=== PATIENT | male | born 1960 | race African-American/Black ===

== ENCOUNTER → 2017-09-04 | Outpatient (CLI) | payer BC, OTHER ==
[~2017-09-04] MED LIST: ATEN50TA PO; COMMODE 3-IN-11 MIS; ECASA81 PO; ENAL2.5T PO; HYDR12.57 PO; MULT-65 PO; NAPR500T2 PO; TYLE325T PO; VITA100018 PO; WALKER WHEELS/F1 MIS
== END ==
LOC: CPRE 11:22
PROVIDERS: ATTEND Orthopaedic Surgery Orthopaedic Trauma
DX: M16.11 Unilateral primary osteoarthritis, right hip (principal); M79.609 Pain in unspecified limb; Z96.60 Presence of unspecified orthopedic joint implant; Z79.01 Long term (current) use of anticoagulants; Z01.818 Encounter for other preprocedural examination; Z13.9 Encounter for screening, unspecified

== ENCOUNTER 2017-09-08 05:26 | Inpatient (IN) | payer BC, OTHER ==
[~2017-09-08] VITALS: Ht 177.8 cm; Wt 100.0 kg
[~2017-09-08 05:26] MED LIST changes: -COMMODE 3-IN-11 MIS; -HYDR12.57 PO; -WALKER WHEELS/F1 MIS
[2017-09-08] MEDS ORDERED: LACTATED RINGER'S 1000 ML IV PRN (06:00)
[2017-09-08] MEDS ORDERED: METOPROLOL TARTRATE 25 MG TAB PO PRN (06:00)
[2017-09-08] MEDS ORDERED: CHLORHEXIDINE GLUCONATE 2 % 1 PACK (2 CLOTHS) TOPICAL PRN (06:00)
[2017-09-08] MEDS ORDERED: SODIUM CHLORID 0.9% 500 ML IV PRN (06:00)
[2017-09-08] MEDS ORDERED: POVIDONE IODINE 5% (ANTISEPSIS KIT) 4 APPLICATIONS EACH NARE PRN (06:00)
[2017-09-08] MEDS ORDERED: FAMOTIDINE 20 MG/2 ML VIAL ONE (06:01)
[2017-09-08] MEDS ORDERED: ACETAMINOPHEN 1000 MG/100 ML 100 ML IV ONE (06:01)
[2017-09-08] MEDS ORDERED: DEXAMETHASONE SOD PHOS 20 MG/5 ML VIAL ONE (06:01)
[2017-09-08] MEDS ORDERED: ONDANSETRON HCL 4 MG/2 ML VIAL ONE (06:01)
[2017-09-08] MEDS ORDERED: VANCOMYCIN 1 GM/200 ML INJ 200 ML IV ONE (06:01)
[2017-09-08] MEDS ORDERED: HYDR12.57 PO (06:03)
[2017-09-08] MEDS ORDERED: GENTAMICIN SULFATE 80 MG/2 ML VIAL ONE (06:08)
[2017-09-08] MEDS ORDERED: GABAPENTIN 300 MG CAP PO SCH (06:15)
[2017-09-08] MEDS ORDERED: BUPIVACAINE LIPOSO PF 1.3% INJ 20 ML, BUPIVACAINE-EPI PF 0.25% INJ 20 ML in SODIUM CHLO... P-ARTICULR SCH (06:30)
[2017-09-08] MEDS ORDERED: ceFAZolin 2 GM PREMIX 50 ML IV SCH ×2 (06:30→14:00)
[2017-09-08] MEDS ORDERED: VANCOMYCIN 1 GM/200 ML PREMIX ON-CALL IV SCH (06:30)
[2017-09-08] MEDS ORDERED: CELECOXIB 200 MG CAP PO SCH (06:30)
[2017-09-08] MEDS ORDERED: TRANEXAMIC ACID INJ 1,500 MG in SODIUM CHLORIDE 0.9% INJ 100 ML IV SCH (06:30)
[2017-09-08] MEDS ORDERED: CHLORHEXIDINE GLUCONATE 4% SOLN 120 ML BTL TOPICAL SCH (06:30)
[2017-09-08] MEDS ORDERED: ONDANSETRON HCL 4 MG/2 ML VIAL IV PRN (06:45)
[2017-09-08] MEDS ORDERED: DEXAMETHASONE SOD PHOS 20 MG/5 ML VIAL IV PRN (06:45)
[2017-09-08] MEDS ORDERED: ACETAMINOPHEN 1000 MG/100 ML 100 ML IV PRN (06:45)
--- NOTE | 2017-09-08 08:58 | PD.OP ---
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 Surgeon: Gibson Greenfield Interior Design Instructor(s): MILLIE Baca PA-C The surgical procedure was assisted by my physician home based assistant. My P.A. presence was necessary throughout this case for the manipulation and positioning of the surgical extremity. My P.A. was assisting me throughout the duration of this procedure. The skill set of a physician home based assistant was medically necessary to complete this procedure. During the surgical case the certified surgical technician was working at the back table and the physician home based assistant was directly assisting me. Operation and Findings: PLAN OF ACTIVITY Weight bear as tolerated. IMPLANTS USED DePuy Corail size [13] standard stem with a size [54] Warsaw Gription cup, [54 /36] Altrx poly liner, and a [36+1] ceramic Biolox ceramic head. DETAILS OF PROCEDURE: This patient has a long history of hip pain. Patient was found to have severe osteoarthritis. The patient had radiographic evidence of joint space narrowing with [id number] arthritis and osteophytes around the acetabulum as well as the femoral head. There was also some cystic changes. The patient failed conservative treatment with pain medications, anti-inflammatories, physical therapy, assistive devices including a cane, as well as therapeutic injection of the hip. Patient's hip arthritis was limiting his ability to ambulate and perform activities of daily living. The patient wished to proceed with surgery and informed consent was obtained. Operative site was marked. I discussed both posterior approach and anterior approach with the patient and decision was made for anterior approach. Patient was brought to OR and placed on OR table. IV sedation and general anesthesia was administered by anesthesiologist. Patient positioned on a Xochitl table and was given IV antibiotics. Time-out procedure was performed. The hip and thigh were prepped with alcohol followed by Hibiclens. The thigh was draped in the usual sterile fashion. Clean Air Suite was used for this procedure. The procedure began with a 5-inch incision over the anterolateral thigh. Subcutaneous tissue was dissected with Bovie. The fascia over the tensa fasciae latae was incised. Care was taken to avoid injury to the lateral femoral cutaneous nerve. The tensor muscle was retracted laterally. Sartorius was retracted medially. Retractors were now placed. The reflected head of the rectus is now elevated. A capsulotomy was performed over the anterior head capsule. Sutures were placed to help retract the capsule. At this point the femoral head and neck were identified. With soft tissue protected, oscillating saw was used to make a cut through the femoral neck, the femoral head was now removed. At this point attention was turned to preparation of the acetabulum. The labrum was excised. The acetabulum was sequentially reamed up to size [54]. A Warsaw cup was now placed. Fluoroscopy was used to aid in identification of appropriate version. Cup was fully impacted and found to have excellent fit. Hole eliminator was now placed. The liner was now impacted into the cup. At this point the hip was externally rotated. A hook was placed around the proximal femur. The capsule was released off the lateral and medial femur. The hip was now extended and adducted. Retractors were placed around the proximal femur to allow for exposure. A box osteotome was used to remove the lateral cortex of the femoral neck. A broach was used to help lateralize the prosthesis. Canal finder was used to create a path down the canal. Next, the canal was sequentially broached up to size [13]. This was found to be an excellent fit. The stem was left slightly superior to help regain leg length to match left side. Calcar planer was placed. A standard head was placed, and the hip was reduced. The hip was found to have excellent stability with good range of motion. The leg lengths were measured under fluoroscopy and found to be equal compared to preoperatively. Trial broach was removed. The Corail stem was opened. Stem was fully impacted into the proximal femur in appropriate version. The femoral head was placed. The hip was again reduced. Fluoroscopy confirmed excellent alignment of prosthesis. The wound was thoroughly irrigated and capsule was closed with #1 Vicryl. The fascia over the tensor fasciae muscle was closed with #1 Vicryl, subcutaneous tissue was closed with 3-0 Vicryl and the skin was closed with yamila and Dermabond skin closure. The capsule layers, muscle, and subcutaneous tissue were injected with a mixture of saline and bupivicaine. Dressings were applied. The patient was transferred to Recovery Room in stable condition. Gibson Greenfield MD Sep 08, 2017 08:58
[2017-09-08] MEDS ORDERED: ACETAMINOPHEN/HYDROcodone 325 MG/7.5 MG TAB PO PRN (09:00)
[2017-09-08] MEDS ORDERED: Post-op Orders (for Pharmacy) XX ONE (09:00)
[2017-09-08] MEDS ORDERED: ACETAMINOPHEN/HYDROcodone 325 MG/5 MG TAB PO PRN (09:00)
[2017-09-08] MEDS ORDERED: MORPHINE SULFATE 4 MG/ML INJ IV PUSH PRN (09:00)
[2017-09-08] MEDS ORDERED: NALOXONE HCL 0.4 MG/ML AMP IV PUSH PRN (09:00)
[2017-09-08] MEDS ORDERED: ACETAMINOPHEN/HYDROcodone 325 MG/10 MG TAB PO PRN (09:00)
[2017-09-08] MEDS ORDERED: DO NOT ADM ANY ANTICOAGULANT DRUGS PRN (09:15)
[2017-09-08] MEDS ORDERED: *MEPERIDINE 25 MG INJ VIAL PERIprocedural Use ONLY ONE (09:23)
[2017-09-08] MEDS: LACTATED RINGER'S 1000 ML INJ 1,000 ML IV SCH ×2 (09:31→21:19)
[2017-09-08] MEDS: KETOROLAC TROMETHAMINE 30 MG/ML (IVP) VIAL IV PUSH SCH ×2 (10:26→21:18)
--- NOTE | 2017-09-08 10:59 | RADRPT ---
EXAM DATE/TIME: 09/08/2017 09:28 [facility] COMPARISON: No previous studies available for comparison. INDICATIONS : Post-op right anterior hip replacement. MEDICAL HISTORY : Hypertension. Diabetes mellitus type II. Arthritis. SURGICAL HISTORY : Right total hip replacement. ENCOUNTER: Initial ACUITY: 1 day PAIN SCORE: Non-responsive. LOCATION: Right anterior hip. FINDINGS: A lateral view of the right hip with AP pelvis was obtained. Right total arthroplasty. Both the femor al and acetabular components are properly positioned. No fracture. CONCLUSION: Appropriate postoperative appearance of the right hip status post total arthroplasty. Wayne Vásquez MD on September 08, 2017 at 10:56 Board Certified Radiologist. This report was verified electronically.
[2017-09-08] MEDS ORDERED: PROPOFOL 200 MG/20 ML AMP IV ONE (12:00)
[2017-09-08] MEDS ORDERED: GLYCOPYRROLATE 1 MG/5 ML SYRINGE IV PUSH ONE (12:00)
[2017-09-08] MEDS ORDERED: ONDANSETRON HCL 4 MG/2 ML VIAL IV ONE (12:00)
[2017-09-08] MEDS ORDERED: LIDOCAINE HCL 1% PF 5 ML SYRINGE OTHER ONE (12:00)
[2017-09-08] MEDS ORDERED: DEXAMETHASONE SOD PHOS 4 MG/ML VIAL IV ONE (12:00)
[2017-09-08] MEDS ORDERED: LACTATED RINGER'S 1000 ML INJ 1,000 ML IV ONE (12:00)
[2017-09-08] MEDS ORDERED: ROCURONIUM INJ 50 MG/5 ML SYRINGE IV PUSH ONE (12:00)
[2017-09-08] MEDS ORDERED: PHENYLEPH/NS 1000 MCG/10 ML SYR IV ONE (12:00)
[2017-09-08] MEDS ORDERED: NEOSTIGMINE 5 MG/5 ML SYRINGE IV PUSH ONE (12:00)
[2017-09-08 12:22] VITALS: BP 132/76; PULSE 89; RESP 18; TEMP 96.9; O2SAT 99
--- NOTE | 2017-09-08 13:45 | RADRPT ---
EXAM DATE/TIME: 09/08/2017 00:00 [facility] COMPARISON: No previous studies available for comparison. INDICATIONS : Post op total hip MEDICAL HISTORY : Hypertension. Diabetes mellitus type II. Arthritis. SURGICAL HISTORY : Right total hip replacement. ENCOUNTER: Subsequent ACUITY: 2 days PAIN SCORE: Non-responsive. LOCATION: Right Hip. FINDINGS: Patient is status post placement of a right hip prosthesis. There is good position and alignment of t he prosthesis and bony structures. The bony structures are grossly intact. Postsurgical changes are p resent. CONCLUSION: Good position and alignment on this postoperative examination. Lizandro Carmichael MD on September 08, 2017 at 13:43 Board Certified Radiologist. This report was verified electronically.
[2017-09-08] MEDS ORDERED: TRANEXAMIC ACID INJ 1,000 MG in SODIUM CHLORIDE 0.9% INJ 100 ML IV ONE (14:00)
[2017-09-08] MEDS: CEFAZOLIN INJ 2,000 MG in SODIUM CHLORIDE 0.9% INJ 100 ML IV SCH ×2 (14:21→21:18)
[2017-09-08] MEDS ORDERED: COMMODE 3-IN-11 MIS (15:56)
[2017-09-08] MEDS ORDERED: WALKER WHEELS/F1 MIS (15:56)
[2017-09-08] MEDS: ACETAMINOPHEN 1000 MG/100 ML 100 ML IV SCH (16:52)
[2017-09-08] MEDS: VANCOMYCIN INJ 1,000 MG in SODIUM CHLOR 0.9% 250 ML INJ 250 ML IV SCH (16:52)
[2017-09-08 17:50] VITALS: BP 148/83; PULSE 92; RESP 16; TEMP 98.6; O2SAT 97
[2017-09-08 19:16] VITALS: BP 135/80; PULSE 98; RESP 18; TEMP 97.1; O2SAT 97
[2017-09-08] MEDS: CELECOXIB 200 MG CAP PO SCH (21:18)
[2017-09-09 00:10] VITALS: BP 133/75; PULSE 96; RESP 18; TEMP 98; O2SAT 96
[2017-09-09] MEDS: CEFAZOLIN INJ 2,000 MG in SODIUM CHLORIDE 0.9% INJ 100 ML IV SCH (02:10)
[2017-09-09 04:00] VITALS: BP 146/88; PULSE 93; RESP 18; TEMP 97.5; O2SAT 96
[2017-09-09] MEDS: ACETAMINOPHEN 1000 MG/100 ML 100 ML IV SCH (05:08)
[2017-09-09] MEDS: VANCOMYCIN INJ 1,000 MG in SODIUM CHLOR 0.9% 250 ML INJ 250 ML IV SCH (05:09)
--- NOTE | 2017-09-09 06:26 | PD.ORT.PN ---
Subjective Subjective Remarks POD 1 s/p right Anterior KIMBERLEY doing well. pain controlled. no complaints. reports out of bed with walker and ambulating well. Objective Vitals Vital Signs Date Time Temp Pulse Resp B/P (MAP) Pulse Ox O2 Delivery O2 Flow Rate FiO2 09/09/17 04:00 97.5 93 18 146/88 (107) 96 09/09/17 00:10 98.0 96 18 133/75 (94) 96 09/08/17 19:16 97.1 98 18 135/80 (98) 97 09/08/17 17:50 98.6 92 16 148/83 (104) 97 09/08/17 17:22 18 09/08/17 12:22 96.9 89 18 132/76 (94) 99 09/08/17 12:00 97.7 88 17 135/81 (99) 98 Nasal Cannula 2 09/08/17 11:00 79 20 130/77 (94) 99 Nasal Cannula 2 09/08/17 10:00 80 21 136/78 (97) 99 Nasal Cannula 2 09/08/17 09:45 82 20 131/70 (90) 97 Nasal Cannula 2 09/08/17 09:30 91 20 136/67 (90) 100 Nasal Cannula 2 09/08/17 09:15 97.6 90 15 140/71 (94) 100 Nasal Cannula 2 I/O 09/08/17 09/08/17 09/08/17 09/09/17 09/09/17 09/09/17 07:00 15:00 23:00 07:00 15:00 23:00 Intake Total 2097 ml 700 ml 570 ml Output Total 3500 ml Balance -1403 ml 700 ml 570 ml Intake Oral 170 ml 360 ml 360 ml IV Total 1927 ml 340 ml 210 ml Output Estimated Blood Loss 500 ml Other 3000 ml # Voids 3 3 # Bowel Movements 0 0 Imaging Last 24 hours Impressions Hip and Pelvis X-Ray 09/08/17 0849 Signed Impressions: Service Date/Time: Friday, September 08, 2017 09:28 - CONCLUSION: Appropriate postoperative appearance of the right hip status post total arthroplasty. Wayne Vásquez MD Objective Remarks RLE: dressing intact. clean and dry. NVI distally. Assessment & Plan Assessment and Plan 1) Right Anterior KIMBERLEY - POD 1 -WBAT -maintain dressing x 7 days -ambulate with therapy today -plan for DC home today with HHC -f/u with Yessenia or PA in 2 weeks -DVT prophylaxis -scripts arranged from outpatient. Mikel Alonzo/First David TA Sep 09, 2017 06:26
--- NOTE | 2017-09-09 06:28 | HHI.FF ---
Face to Face Verification Diagnosis: (1) Status post right hip replacement Physical Therapy Gait training Hip: Total hip, Protocol: Right Right LE Weight Bearing: WB as tolerated Nursing Dressing Changes: Do not change dressing (maintain dressing x 7 days unless saturated with blood), Coverderm/Primapore (transition to primapore on POd 7) I have seen patient Cameron Tomlinson Jr Janis on 09/09/17. My clinical findings support the need for the requested home health care services because: Ltd mobility - disease progression I certify that my clinical findings support that this patient is homebound because: Post-op weakness Mikel Alonzo/Unit Secy KEYON Sep 09, 2017 06:28
[2017-09-09 08:00] VITALS: BP 136/73; PULSE 96; RESP 18; TEMP 97.7; O2SAT 96
[2017-09-09] MEDS ORDERED: ENOXAPARIN SODIUM 40 MG/0.4 ML SYRINGE SQ SCH (08:00)
--- NOTE | 2017-09-09 08:22 | HHI.DS ---
Discharge Summary Admission Date Sep 08, 2017 at 05:26 Discharge Date: Sep 09, 2017 Admitting Diagnosis Right hip osteoarthritis Diagnosis: (1) Status post right hip replacement Diagnosis: Principal ICD Codes: Z96.641 - Presence of right artificial hip joint Procedures Right anterior total hip arthroplasty PE at Discharge RLE: dressing intact. clean and dry. NVI distally. Hospital Course Patient was admitted from an outpatient setting after failing conservative treatment for treatment of his right hip osteoarthritis. Conservative treatment included anti-inflammatory therapy, physical therapy, and intra- articular steroid injections. He was admitted for elective right total hip arthroplasty. He tolerated the procedure well. He was admitted to [facility]. He is out of bed with therapy on postop day 0 with minimal discomfort. By postop day 1, he was hemodynamically stable, pain was controlled, he was ambulating on his own with a walker, and was fit for discharge home with home health care. He will remain fully weight-bearing. He will maintain his dressing for 7 days and will begin daily dressing changes on postop day 7. He will follow-up with Dr. Casas or his PA in 2 weeks. Pt Condition on Discharge: Good Discharge Disposition: Disch w/ Home Health Serv Discharge Instructions Diet Instructions: As Tolerated, No Restrictions Activities You Can Perform: Regular-No Restrictions Follow up Referrals: Appointment for Follow Up @ [facility] with HAYDEE New Medications: Commode 3-in-1 (Commode 3-in-1) 1 Mis Mis EA .XX DIRECTED, #1 0 Refills Walker with Front Wheels (Walker with Front Wheels) 1 Mis Mis EA .XX DIRECTED, #1 0 Refills Continued Medications: Acetaminophen (Tylenol) 325 Mg Tab 325 MG PO TID, #1 TAB 0 Refills Atenolol (Atenolol) 50 Mg Tab 50 MG PO DAILY for Blood Pressure Management, #30 TAB 0 Refills Cholecalciferol (Vitamin D3) 1,000 Unit Tab 1000 UNITS PO DAILY for Nutritional Supplement, #1 BOTTLE 0 Refills Hydrochlorothiazide (Hydrochlorothiazide) 12.5 Mg Cap 12.5 MG PO DAILY, #30 CAP 0 Refills Multiple Vitamin (Multi-Vitamin Daily) 1 Tab Tab 1 TAB PO DAILY for Nutritional Supplement, TAB 0 Refills Discontinued Medications: Aspirin DR (Aspirin DR) 81 Mg Tabdr 81 MG PO DAILY, TAB 0 Refills Naproxen (Naproxen) 500 Mg Tab 500 MG PO DAILY, #60 TAB 0 Refills Mikel Alonzo/First David TA Sep 09, 2017 08:22
[2017-09-09] MEDS: CELECOXIB 200 MG CAP PO SCH (08:24)
[2017-09-09] MEDS: LACTATED RINGER'S 1000 ML INJ 1,000 ML IV SCH (09:49)
[2017-09-09 12:00] VITALS: BP 138/72; PULSE 101; RESP 18; TEMP 96.6; O2SAT 98
[2017-09-09 12:47] VITALS: RESP 18
[2017-09-09 13:21] LABS: HEMOGLOBIN 10.3 GM/DL (13.0-17.0)
[2017-09-09] MEDS ORDERED: DOCUSATE SODIUM 100 MG CAP PO SCH (21:00)
== END 2017-09-09 14:24 | disposition home health service (06) | DRG 470 ==
LOC: HSDI 05:26 → N06B 12:25
PROVIDERS: ADMIT Orthopaedic Surgery Orthopaedic Trauma; ATTEND Orthopaedic Surgery Orthopaedic Trauma
PROC: 0SR904A Replacement of Right Hip Joint with Ceramic on Polyethylene Synthetic Substitute, Uncemented, Open Approach (ICD-10-PCS; principal; 2017-09-08 06:40)
DX: M16.11 Unilateral primary osteoarthritis, right hip (principal); M87.851 Other osteonecrosis, right femur; M25.751 Osteophyte, right hip; I10 Essential (primary) hypertension; E78.5 Hyperlipidemia, unspecified; E11.9 Type 2 diabetes mellitus without complications; Z79.84 Long term (current) use of oral hypoglycemic drugs
CPT/HCPCS: 73501; 73502; 76000; 85014; 85018; 86850; 86900; 86901; C1776; C9290; J0131; J0690; J1100; J1580; J1650; J1885; J2175; J2370; J2405; J2710; J3010; J3370; J7050; J7120